=== PATIENT | male | born 1960 | race Hispanic/Latino ===

== ENCOUNTER 2016-08-07 19:41 | Emergency (ER) | payer MEDICARE ==
[2016-08-07 20:30] LABS: Eosinophils % (Auto) 3.5 % (0.0-4.3); Hematocrit 32.6 % (35.5-45.6); Hemoglobin 10.8 gm/dl (11.8-15.2); Mean Corpuscular HGB Conc 33 % (32-34); Mean Corpuscular Hemoglobin 30 pg (28-32); Mean Corpuscular Volume 89 fl (84-94); Platelet Count 277 K/mm3 (140-440); Red Blood Count 3.66 M/mm3 (3.65-5.03); White Blood Count 7.5 K/mm3 (4.5-11.0)
[2016-08-07 20:44] LABS: Anion Gap 14 mmol/L; BUN/Creatinine Ratio 14.16; Blood Urea Nitrogen 17 mg/dL (9-20); Calcium 8.9 mg/dL (8.4-10.2); Carbon Dioxide 27 mmol/L (22-30); Chloride 99.3 mmol/L (98-107); Glucose 91 mg/dL (75-100); Potassium 4.7 mmol/L (3.6-5.0); Sodium 136 mmol/L (137-145)
[2016-08-07 21:14] LABS: Bilirubin,Urine NEG (Negative); Blood,Urine NEG (Negative); Ketones,Urine NEG (Negative); Leukocyte Esterase,Urine NEG (Negative); Nitrite,Urine NEG (Negative); Protein,Urine <15 mg/dL mg/dL (Negative); Urobilinogen,Urine < 2.0 mg/dL (<2.0); WBC,Urine < 1.0 /HPF (0.0-6.0)
--- NOTE | 2016-08-07 21:32 | Emergency Department Report ---
ED General Adult HPI - General Chief complaint: Extremity Problem,Nontraumatic Stated complaint: BILATERAL LEG PAIN Time Seen by Provider: 08/07/16 21:20 Source: patient, RN notes reviewed Mode of arrival: Ambulatory Limitations: No Limitations - History of Present Illness Initial comments: This is a 56-year-old male. He is previously unknown to me. He reports a history of chronic venous stasis insufficiency and venous stasis ulcers. The patient presents to the ER with bilateral medial pulliam pain. The pain is on the medial aspect of the right leg and left leg. It is sharp. It increases with palpation, decreases with rest. No fevers or chills. No chest pain or shortness of breath. No streaking. The patient reports chronic wounds, he reports she's been having this pain for "30 years." He indicates mild foul smell. The patient indicates that he was getting wound care at another hospital, [facility], but he has not followed up recently. [facility], they are placing silver impregnated gauze on the wounds. He reports that the right lower extremity gauze has been present for 3 weeks. -: Gradual Location: left, right, lower extremity Severity scale (0 -10): 0 Quality: aching Consistency: intermittent Improves with: movement, rest Associated Symptoms: rash. denies: confusion, chest pain, cough, diaphoresis, headaches, loss of appetite, malaise, nausea/vomiting - Related Data Previous Rx's Medication Instructions Recorded Last Taken Type Clindamycin [Clindamycin CAP] 300 mg PO Q6H #28 capsule 08/07/16 Unknown Rx Mupirocin [Bactroban 2%] 1 applic TP TID #2 tube 08/07/16 Unknown Rx Allergies Allergy/AdvReac Type Severity Reaction Status Date / Time No Known Allergies Allergy Verified 08/07/16 19:49 ED Review of Systems ROS: Stated complaint: BILATERAL LEG PAIN Other details as noted in HPI Constitutional: denies: fever Eyes: denies: eye discharge ENT: denies: epistaxis Respiratory: denies: cough Cardiovascular: denies: chest pain Gastrointestinal: denies: abdominal pain Genitourinary: as per HPI Musculoskeletal: myalgia Skin: rash, lesions Neurological: as per HPI Psychiatric: anxiety ED Past Medical Hx - Past Medical History Previous Medical History?: Yes Hx Psychiatric Treatment: Yes (STD / ANXIETY) - Surgical History Past Surgical History?: No - Social History Smoking Status: Current Every Day Smoker Substance Use Type: Alcohol - Medications Home Medications: Home Medications Medication Instructions Recorded Confirmed Last Taken Type Clindamycin [Clindamycin CAP] 300 mg PO Q6H #28 capsule 08/07/16 Unknown Rx Mupirocin [Bactroban 2%] 1 applic TP TID #2 tube 08/07/16 Unknown Rx ED Physical Exam - General Limitations: No Limitations General appearance: alert, anxious - Head Head exam: Present: atraumatic, normocephalic - Eye Eye exam: Present: normal appearance, EOMI. Absent: nystagmus - ENT ENT exam: Present: normal exam, normal orophraynx, mucous membranes moist, normal external ear exam - Neck Neck exam: Present: normal inspection, full ROM. Absent: tenderness, meningismus - Respiratory Respiratory exam: Present: normal lung sounds bilaterally. Absent: respiratory distress, wheezes, rales, rhonchi, stridor, chest wall tenderness, accessory muscle use, decreased breath sounds, prolonged expiratory - Cardiovascular Cardiovascular Exam: Present: regular rate, normal rhythm, normal heart sounds. Absent: bradycardia, tachycardia, irregular rhythm, systolic murmur, diastolic murmur, rubs, gallop - GI/Abdominal GI/Abdominal exam: Present: soft, normal bowel sounds. Absent: distended, tenderness, guarding, rebound, rigid, pulsatile mass - Rectal Rectal exam: Present: deferred - Extremities Exam Extremities exam: Present: full ROM, normal capillary refill, pedal edema, other (there is chronic discoloration and venous stasis noted to the bilateral lower extremities. Right lower extremity has a large area of ulceration, and there is an area of darkish discoloration secondary to the care home placement of the [place] gauze. There is a mild discharge. The compartments are soft, there is no streaking, there is no crepitus. 2+ pulses noted in 4 extremities) . Absent: tenderness, calf tenderness - Back Exam Back exam: Present: normal inspection, full ROM. Absent: tenderness, CVA tenderness (R), CVA tenderness (L), muscle spasm, paraspinal tenderness, vertebral tenderness - Neurological Exam Neurological exam: Present: alert, oriented X3, normal gait, other (Extraocular movements intact. Tongue midline. No facial droop. Facial sensation intact to light touch in the V1, V2, V3 distribution bilaterally. 5 and 5 strength in 4 extremities.. Sensation is intact to light touch in 4 extremities.). Absent : motor sensory deficit - Psychiatric Psychiatric exam: Present: anxious - Skin Skin exam: Present: warm, rash ED Course Vital Signs 08/07/16 08/07/16 19:49 23:30 Temperature 97.9 F Pulse Rate 88 84 Respiratory 20 18 Rate Blood Pressure 132/83 Blood Pressure 138/74 [Left] O2 Sat by Pulse 99 100 Oximetry - Reevaluation(s) Reevaluation #1: 08/07/16 22:56 differential diagnosis: Mild wound infection, chronic venous insufficiency, chronic venous stasis Assessment and plan: 56-year-old male with mild foul-smelling discharge from bilateral lower extremity wounds, right greater than left. There is no significant tenderness, crepitus, or streaking. Maybe a mild wound infection. The patient has no pulmonary embolus or DVT risk factors, he is low risk by well 's criteria, the patient has no palpable cord, and has appropriate pulses in the bilateral lower extremity. The wounds were scrubbed very thoroughly by the nurse, and then bactroban is applied. The patient will be discharged with clindamycin, Bactroban, instructions to follow up with outpatient wound care. Laboratory studies, vital signs unremarkable. ED Medical Decision Making - Lab Data Result diagrams: 08/07/16 20:16 08/07/16 20:16 Vital Signs 08/07/16 19:49 Temperature 97.9 F Pulse Rate 88 Respiratory 20 Rate Blood Pressure 132/83 O2 Sat by Pulse 99 Oximetry Lab Results 08/07/16 08/07/16 08/07/16 Range/Units 20:16 20:16 20:16 WBC 7.5 (4.5-11.0) K/mm3 RBC 3.66 (3.65-5.03) M/mm3 Hgb 10.8 L (11.8-15.2) gm/dl Hct 32.6 L (35.5-45.6) % MCV 89 (84-94) fl MCH 30 (28-32) pg MCHC 33 (32-34) % RDW 14.0 (13.2-15.2) % Plt Count 277 (140-440) K/mm3 Lymph % (Auto) 21.4 (13.4-35.0) % [place] % (Auto) 11.7 H (0.0-7.3) % Eos % (Auto) 3.5 (0.0-4.3) % Baso % (Auto) 1.0 (0.0-1.8) % Lymph # 1.6 (1.2-5.4) K/mm3 [place] # 0.9 H (0.0-0.8) K/mm3 Eos # 0.3 (0.0-0.4) K/mm3 Baso # 0.1 (0.0-0.1) K/mm3 Seg Neutrophils % 62.4 (40.0-70.0) % Seg Neutrophils # 4.7 (1.8-7.7) K/mm3 Sodium 136 L (137-145) mmol/L Potassium 4.7 (3.6-5.0) mmol/L Chloride 99.3 (98-107) mmol/L Carbon Dioxide 27 (22-30) mmol/L Anion Gap 14 mmol/L BUN 17 (9-20) mg/dL Creatinine 1.2 (0.8-1.5) mg/dL Estimated GFR > 60 ml/min BUN/Creatinine Ratio 14.16 % Glucose 91 (75-100) mg/dL Calcium 8.9 (8.4-10.2) mg/dL Total Creatine Kinase 72 (55-170) units/L Urine Color (Yellow) Urine Turbidity (Clear) Urine pH (5.0-7.0) Ur Specific [place] (1.003-1.030) Urine Protein (Negative) mg/dL Urine Glucose (UA) (Negative) mg/dL Urine Ketones (Negative) mg/dL Urine Blood (Negative) Urine Nitrite (Negative) Urine Bilirubin (Negative) Urine Urobilinogen (<2.0) mg/dL Ur Leukocyte Esterase (Negative) Urine WBC (Auto) (0.0-6.0) /HPF Urine RBC (Auto) (0.0-6.0) /HPF 08/07/16 Range/Units 20:41 WBC (4.5-11.0) K/mm3 RBC (3.65-5.03) M/mm3 Hgb (11.8-15.2) gm/dl Hct (35.5-45.6) % MCV (84-94) fl MCH (28-32) pg MCHC (32-34) % RDW (13.2-15.2) % Plt Count (140-440) K/mm3 Lymph % (Auto) (13.4-35.0) % [place] % (Auto) (0.0-7.3) % Eos % (Auto) (0.0-4.3) % Baso % (Auto) (0.0-1.8) % Lymph # (1.2-5.4) K/mm3 [place] # (0.0-0.8) K/mm3 Eos # (0.0-0.4) K/mm3 Baso # (0.0-0.1) K/mm3 Seg Neutrophils % (40.0-70.0) % Seg Neutrophils # (1.8-7.7) K/mm3 Sodium (137-145) mmol/L Potassium (3.6-5.0) mmol/L Chloride (98-107) mmol/L Carbon Dioxide (22-30) mmol/L Anion Gap mmol/L BUN (9-20) mg/dL Creatinine (0.8-1.5) mg/dL Estimated GFR ml/min BUN/Creatinine Ratio % Glucose (75-100) mg/dL Calcium (8.4-10.2) mg/dL Total Creatine Kinase (55-170) units/L Urine Color Straw (Yellow) Urine Turbidity Clear (Clear) Urine pH 8.0 H (5.0-7.0) Ur Specific [place] 1.012 (1.003-1.030) Urine Protein <15 mg/dl (Negative) mg/dL Urine Glucose (UA) Neg (Negative) mg/dL Urine Ketones Neg (Negative) mg/dL Urine Blood Neg (Negative) Urine Nitrite Neg (Negative) Urine Bilirubin Neg (Negative) Urine Urobilinogen < 2.0 (<2.0) mg/dL Ur Leukocyte Esterase Neg (Negative) Urine WBC (Auto) < 1.0 (0.0-6.0) /HPF Urine RBC (Auto) 1.0 (0.0-6.0) /HPF Critical care attestation.: If time is entered above; I have spent that time in minutes in the direct care of this critically ill patient, excluding procedure time. ED Disposition Clinical Impression: Chronic wound of extremity Disposition: DISCHARGED TO HOME OR SELFCARE Is pt being admited?: No Does the pt Need Aspirin: No Condition: Stable Instructions: Acute Wound Care (ED), Chronic Wound Care (ED) Additional Instructions: Wash the bilateral lower extremities with soap and water at least once a day. Then, comfortable with Bactroban, and keep dry. Take the antibiotic as directed. Follow up with the wound care center within the next week. There are chronic wounds to the bilateral lower extremities, and these require follow- up with an outpatient wound facility. Please return to the ER right away with new pain, worsening pain, migration of pain, fevers, chills, chest pain, shortness of breath, intractable nausea or vomiting, inability to tolerate liquid feeds, new, worsening or different symptoms. Prescriptions: Clindamycin [Clindamycin CAP] 300 mg PO Q6H #28 capsule Mupirocin [Bactroban 2%] 1 applic TP TID #2 tube Referrals: [facility] LESLIE [Other] - 3-5 Days [facility] [Outside] - 3-5 Days
[2016-08-07] MEDS ORDERED: BACTROBAN 2% TP ONE (22:00)
[2016-08-07] MEDS ORDERED: CLEOCIN PO STA (23:03)
[2016-08-07] MEDS ORDERED: MOTRIN PO ONE (23:03)
[2016-08-07 23:36] VITALS: BP 138/74
== END 2016-08-07 23:35 | disposition home or self-care (01) ==
LOC: ED 19:41
DX: S81.802A Unspecified open wound, left lower leg, initial encounter (principal); S81.801A Unspecified open wound, right lower leg, initial encounter; F17.200 Nicotine dependence, unspecified, uncomplicated; F41.9 Anxiety disorder, unspecified; X58.XXXA Exposure to other specified factors, initial encounter; Y93.89 Activity, other specified; Y92.89 Other specified places as the place of occurrence of the external cause; Y99.8 Other external cause status
CPT/HCPCS: 36415; 80048; 81001; 82550; 85025; 99283